=== PATIENT | female | born 1970 | race Caucasian/White ===

== ENCOUNTER 2024-09-03 06:01 | Emergency (ER) | payer BC, OTHER ==
[2024-09-03 06:29] VITALS: TEMP 97.8
[2024-09-03] MEDS ORDERED: Zofran 4 MG/2 ML VIAL ONE ×2 (06:44→08:21)
[2024-09-03] MEDS: Sodium Chloride 0.9% 1000 ML 1,000 ML IV STA ×2 (06:45→08:19)
[2024-09-03] MEDS ORDERED: Hydromorphone 1 mg/ml Injection ONE ×2 (06:45→08:21)
[2024-09-03] MEDS ORDERED: Sodium Chloride 0.9% 1000 ML 1,000 ML ONE ×2 (06:45→07:49)
[2024-09-03] MEDS: Zofran 4 MG/2 ML VIAL IV ONE ×2 (06:46→08:22)
[2024-09-03] MEDS: Hydromorphone 1 mg/ml Injection IV ONE ×2 (06:46→08:22)
[2024-09-03 06:47] LABS: Absolute Neutrophil Ct (ANC) 7.11 x10^3/uL (1.56-6.13); BASOPHIL % 0.3 % (0.1-1.2); Basophil (Absolute #) 0.03 x10^3/uL (0.01-0.08); Eosinophil % 1.9 % (0.7-5.8); Eosinophil (Absolute #) 0.19 x10^3/uL (0.04-0.36); Hematocrit 45.1 % (34.1-44.9); Hemoglobin 15.1 g/dL (11.2-15.7); IMMATURE GRAN # 0.08 x10^3u/L (0.001-0.031); IMMATURE GRAN % 0.8 % (0.001-0.429); Lymphocyte (Absolute #) 1.83 x10^3/uL (1.18-3.74); Mean Cell Volume 86.1 fL (79.4-94.8); Mean Corpuscular Hemoglobin 28.8 pg (25.6-32.2); Mean Corpuscular Hgb Concent. 33.5 g/dL (32.2-35.5); Mean Platelet Volume 12.1 fL (9.4-12.3); Monocyte (Absolute #) 0.91 x10^3/uL (0.24-0.86); Platelet Count 187 x10^3/uL (182-369); Red Blood Count 5.24 x10^6/uL (3.93-5.22); Red Cell Distribution Width 13.8 % (11.7-14.4); White Blood Count 10.2 x10^3/uL (3.98-10.04)
[2024-09-03 07:03] LABS: ALBUMIN 4.4 g/dL (3.5-5.0); ANION GAP 16.8 MEQ/L (5-15); BILIRUBIN,TOTAL 0.8 mg/dL (0.2-1.3); Calcium 9.5 mg/dL (8.4-10.2); Creatinine 1 0.71 mg/dL (0.52-1.04); EST GLOMERULAR FILTRATION RATE 102.2 ML/MIN; Potassium 4.8 mmol/L (3.5-5.1); Total Protein 7.1 g/dL (6.3-8.2)
--- NOTE | 2024-09-03 07:21 | ERPHSYRPT ---
- History of Present Illness Time Seen by Provider: 09/03/24 07:05 Source: patient Patient Subjective Stated Complaint: pt states she has been having a band of pain around her chest for a week. pt states that she was put on steroids and naproxen and has had no relief Triage Nursing Assessment: pt ambulated into the er; pt is axo x4; pt is anxious, yelling out, restless; c/o chest pain; states 9/10 pain to chest that radiates to back; clear apical heart tone; clear lung sounds in all lobes; no respiratory distress present; strong bigg radial pulses; strong bigg pedal pulses; no edema present; active bowel sounds in all quads; c/o nausea, denies V/D; vitals wnl Timing/Duration: today Severity: mild Associated Symptoms: abdominal pain Allergies/Adverse Reactions: Penicillins Allergy (Verified 09/03/24 06:03) Swelling of Face Home Medications: ALPRAZolam [Alprazolam] 0.5 mg PO HS 09/03/24 [History] Multivit-Min/Iron/Folic/Lutein [Multivitamin Women 50 Plus Tab] 1 each PO DAILY 09/03/24 [History] Naproxen 500 mg [Naprosyn 500 MG] 500 mg PO BID 09/03/24 [History] Phentermine HCl 37.5 mg PO DAILY 09/03/24 [History] Primidone 50 MG [Mysoline 50Mg] 50 mg PO BID 09/03/24 [History] Simvastatin 10 mg [Zocor 10MG] 10 mg PO DAILY 09/03/24 [History] Hx Tetanus, Diphtheria Vaccination/Date Given: Yes Hx Influenza Vaccination/Date Given: Yes Hx Pneumococcal Vaccination/Date Given: No Travel Risk - International Travel Have you traveled outside of the country in past 3 weeks: No - Emerging Infectious Disease Are you exhibiting symptoms associated with any current EIDs: No - Past Medical History Pertinent Past Medical History: Yes Cardiac History: Hypertension Psycho-Social History: Anxiety Other Medical History: tremors - Past Surgical History Past Surgical History: Yes Musculoskeletal: Orthopedic Surgery Other Surgical History: left knee replacement - Female History Hx Now: No - Social History Smoking Status: Light tobacco smoker Exposure to second hand smoke: No Drug Use: none - Social Determinants of Health Will the patient participate in the screening: Yes Do you worry about a steady place to live?: No Do you have any problems with any of the following?: No known problems In the past 12 months,have you had to go without utilities?: No Transportation Issues: No Has anyone in your support network made you feel unsafe?: No Have you or anyone in your house had to go w/o enough food: No - Nursing Vital Signs Nursing Vital Signs: Initial Vital Signs Temperature 97.8 F 09/03/24 06:04 Pulse Rate 82 09/03/24 06:04 Respiratory Rate 24 09/03/24 06:04 Blood Pressure 111/82 09/03/24 06:04 O2 Sat by Pulse Oximetry 100 09/03/24 06:04 Pain Scale Pain Intensity 0 - Physical Exam SpO2: 98 Ordered Tests: Active Orders 24 hr Category Date Time Status ABDOMEN AND PELVIS W CONTRAST [CT] Stat Exams 09/03/24 07:19 Completed CHEST WITH CONTRAST [CT] Stat Exams 09/03/24 07:21 Completed GALLBLADDER [US] Stat Exams 09/03/24 12:19 Completed CBC W DIFF Stat Lab 09/03/24 06:37 Completed CMP Stat Lab 09/03/24 06:20 Completed LIPASE Stat Lab 09/03/24 06:20 Completed UA W/RFX UR CULTURE Stat Lab 09/03/24 10:28 Completed Medication Summary Discontinued Medications Generic Name Dose Route Start Last Admin Trade Name Freq PRN Reason Stop Dose Admin Hydromorphone HCl 1 mg 09/03/24 06:38 09/03/24 06:46 Hydromorphone 1 Mg/1ml Inj IV 09/03/24 06:39 1 mg STAT ONE Administration Hydromorphone HCl Confirm 09/03/24 06:45 Hydromorphone 1 Mg/1ml Inj Administered 09/03/24 06:46 Dose 1 mg .ROUTE .STK-MED ONE Hydromorphone HCl 1 mg 09/03/24 07:18 09/03/24 08:22 Hydromorphone 1 Mg/1ml Inj IV 09/03/24 07:19 1 mg STAT ONE Administration Hydromorphone HCl Confirm 09/03/24 08:21 Hydromorphone 1 Mg/1ml Inj Administered 09/03/24 08:22 Dose 1 mg .ROUTE .STK-MED ONE Sodium Chloride 1,000 mls @ 999 mls/hr 09/03/24 06:38 09/03/24 07:48 Sodium Chloride 0.9% 1000 Ml IV 09/03/24 07:38 Infused .Q1H1M STA Infusion Sodium Chloride Confirm 09/03/24 06:45 Sodium Chloride 0.9% 1000 Ml Administered 09/03/24 06:46 Dose 1,000 mls @ ud .ROUTE .STK-MED ONE Sodium Chloride 1,000 mls @ 999 mls/hr 09/03/24 07:18 09/03/24 09:20 Sodium Chloride 0.9% 1000 Ml IV 09/03/24 08:18 Infused .Q1H1M STA Infusion Sodium Chloride Confirm 09/03/24 07:49 Sodium Chloride 0.9% 1000 Ml Administered 09/03/24 07:50 Dose 1,000 mls @ ud .ROUTE .STK-MED ONE Ondansetron HCl 4 mg 09/03/24 06:38 09/03/24 06:46 Ondansetron Hcl 4 Mg/2 Ml Vial IV 09/03/24 06:39 4 mg STAT ONE Administration Ondansetron HCl Confirm 09/03/24 06:44 Ondansetron Hcl 4 Mg/2 Ml Vial Administered 09/03/24 06:45 Dose 4 mg .ROUTE .STK-MED ONE Ondansetron HCl 4 mg 09/03/24 07:18 09/03/24 08:22 Ondansetron Hcl 4 Mg/2 Ml Vial IV 09/03/24 07:19 4 mg STAT ONE Administration Ondansetron HCl Confirm 09/03/24 08:21 Ondansetron Hcl 4 Mg/2 Ml Vial Administered 09/03/24 08:22 Dose 4 mg .ROUTE .STK-MED ONE Lab/Rad Data: Laboratory Result Diagrams 09/03/24 06:37 09/03/24 06:20 Laboratory Results 09/03/24 09/03/24 09/03/24 Range/Units 10:28 06:37 06:20 WBC 10.2 H (3.98-10.04) x10^3/uL RBC 5.24 H (3.93-5.22) x10^6/uL Hgb 15.1 (11.2-15.7) g/dL Hct 45.1 H (34.1-44.9) % MCV 86.1 (79.4-94.8) fL MCH 28.8 (25.6-32.2) pg MCHC 33.5 (32.2-35.5) g/dL RDW 13.8 (11.7-14.4) % Plt Count 187 (182-369) x10^3/uL MPV 12.1 (9.4-12.3) fL Gran % 70.0 (34.0-71.1) % Immature Gran % (Auto) 0.8 H (0.001-0.429) % Nucleat RBC Rel Count 0.0 (0.00-0.2) % Eos # (Auto) 0.19 (0.04-0.36) x10^3/uL Immature Gran # (Auto) 0.08 H (0.001-0.031) x10^3u/L Absolute Lymphs (auto) 1.83 (1.18-3.74) x10^3/uL Absolute Monos (auto) 0.91 H (0.24-0.86) x10^3/uL Absolute Nucleated RBC 0.00 (0.00-0.012) x10^3u/L Lymphocytes % 18.0 L (19.3-51.7) % Monocytes % 9.0 (4.7-12.5) % Eosinophils % 1.9 (0.7-5.8) % Basophils % 0.3 (0.1-1.2) % Absolute Granulocytes 7.11 H (1.56-6.13) x10^3/uL Basophils # 0.03 (0.01-0.08) x10^3/uL Sodium 138 (135-145) mmol/L Potassium 4.8 (3.5-5.1) mmol/L Chloride 103 (98-107) mmol/L Carbon Dioxide 22 (22-30) mmol/L Anion Gap 16.8 H (5-15) MEQ/L BUN 21 H (7-17) mg/dL Creatinine 0.71 (0.52-1.04) mg/dL Estimated GFR 102.2 ML/MIN Glucose 120 H (74-106) mg/dL Calcium 9.5 (8.4-10.2) mg/dL Total Bilirubin 0.80 (0.2-1.3) mg/dL AST 36 (14-36) U/L ALT 27 (0-35) U/L Alkaline Phosphatase 91 (38-126) U/L Serum Total Protein 7.1 (6.3-8.2) g/dL Albumin 4.4 (3.5-5.0) g/dL Lipase 143 (23-300) U/L Urine Color Yellow (Yellow) Urine Appearance Clear (Clear) Urine pH 6.5 (4.6-8.0) Ur Specific [place] >=1.030 A (1.005-1.030) Urine Protein Negative (Negative) Urine Glucose (UA) Negative (Negative) mg/dL Urine Ketones Negative (Negative) Urine Blood Negative (Negative) Urine Nitrite Negative (Negative) Urine Bilirubin Negative (Negative) Urine Urobilinogen 0.2 (0.2) mg/dL Ur Leukocyte Esterase Negative (Negative) U Hyaline Cast (Auto) NONE SEEN (0-2) /LPF Urine Microscopic RBC 0-2 (0-5) /HPF Urine Microscopic WBC 0-2 (0-5) /HPF Ur Epithelial Cells None Seen (None Seen) /HPF Urine Bacteria None Seen (None Seen) /HPF Urine Culture Reflexed NO (NO) - Progress Progress Note: Patient was seen and evaluated for initial complaints of lower back pain radiating towards her abdomen and her chest, this has been getting worse for the past few days worse today so she decided to come in for evaluation CT scan of the chest abdomen pelvis was obtained these are within normal limits. Patient was updated with the results given her history of right upper quadrant pain gallbladder ultrasound was obtained this reveals no acute findings. Patient was updated with all her results including her lab work and her CT scans and her ultrasounds and informed of the need to follow-up with her primary care provider and general surgeon 09/03/24 13:47 Medical Desision Making - Discussion of managment Reviewed:: Need for additional workup - Departure Departure Disposition: Home Clinical Impression: Back pain, Pleurodynia, Acute abdominal pain Condition: Stable Critical Care Time: No Referrals: UMA MICHELLE MD [Primary Care Provider] - Follow up/PCP as directed
--- NOTE | 2024-09-03 09:04 | XRAY ---
Indication: Chest pain. Multiple contiguous axial images obtained through the chest using 80 cc Isovue 370 contrast. Comparison: None Lungs inflated and clear. Heart not enlarged. Aorta is normal in course and caliber. No pathologic mediastinal/hilar lymphadenopathy. Bony thorax intact. CT abdomen/pelvis reported separately. Impression: Normal CT chest with contrast exam.
--- NOTE | 2024-09-03 09:06 | XRAY ---
Indication: Abdomen pain. Multiple contiguous axial images obtained through the abdomen and pelvis using 80 cc Isovue 370 contrast. Comparison: None CT chest reported separately. Noncontrasted stomach and bowel loops appear nonobstructed with normal appendix. Mild fecal debris predominantly in ascending and transverse colon. No free fluid/air. Remaining liver, gallbladder, pancreas, spleen, adrenal glands, kidneys, ureters, bladder, uterus, and aorta are normal in CT appearance and attenuation. No pathologic retroperitoneal lymphadenopathy. Osseous structures intact. Impression: Normal CT abdomen/pelvis with contrast exam.
[2024-09-03 10:58] LABS: Appearance Clear (Clear); Bacteria None Seen /HPF (None Seen); Bilirubin Negative (Negative); Blood Negative (Negative); Epithelial Cells None Seen /HPF (None Seen); Glucose, Urine Negative (Negative); Hyaline Casts NONE SEEN /LPF (0-2); Ketones Negative (Negative); Leukocyte Esterase Negative (Negative); Nitrite Negative (Negative); Ph 6.5 (4.6-8.0); Protein,Urine Dip Negative (Negative); RBC 0-2 /HPF (0-5); Specific Gravity >=1.030 (1.005-1.030); Urobilinogen 0.2 mg/dL (0.2); WBC 0-2 /HPF (0-5)
--- NOTE | 2024-09-03 13:39 | XRAY ---
Indication: Abdominal pain. Normal CT abdomen/pelvis. Two-dimensional gallbladder sonogram performed. Comparison: December 09, 2023 Visualized gallbladder, liver, pancreas, and right kidney are sonographically unremarkable. Common bile duct measures 3.6 mm. No intrahepatic biliary distention or free fluid. Right kidney measures 9.9 x 5.3 x 6.2 cm. Impression: Continued normal gallbladder sonogram.
[2024-09-03 13:43] VITALS: BP 132/80; PULSE 69; RESP 19
[2024-09-03 13:49] VITALS: O2SAT 98
== END 2024-09-03 14:06 | disposition home or self-care (01) ==
LOC: ED 06:01
DX: M54.50 Low back pain, unspecified (principal); R07.81 Pleurodynia; R10.9 Unspecified abdominal pain; I10 Essential (primary) hypertension; Z79.899 Other long term (current) drug therapy; Z72.0 Tobacco use
CPT/HCPCS: 36415; 71260; 74177; 76705; 80053; 81001; 83690; 85025; 96361; 96374; 96375; 96376; 99285; J1171; J2405